=== PATIENT | female | born 1930 | race Caucasian/White ===

== ENCOUNTER 2017-02-24 13:52 | Inpatient (IN) | payer MEDICARE, BC ==
[2017-02-24 14:18] LABS: BASOPHILS % (AUTO) 1 % (0-3); EOSINOPHILS % (AUTO) 0 % (0-9); HEMATOCRIT 39 % (35-47); MEAN CORPUSCULAR HGB CONC 32.4 gm/dl (32.0-36.0); MONOCYTES % (AUTO) 9.7 % (0-12); NEUTROPHILS % (AUTO) 68.9 % (37-80)
[2017-02-24 14:24] LABS: MEAN CORPUSCULAR VOLUME 79 fL (81-99)
[2017-02-24 14:37] LABS: ALT 29 IU/L (14-63); CALCIUM 8.2 mg/dl (8.5-10.1); GLOM FILT RATE 54 mL/min (>60); POTASSIUM 3.1 mMol/L (3.5-5.1); SODIUM 141 mMol/L (136-145)
[2017-02-24 14:52] LABS: ABG PH 7.49 (7.35-7.45)
[2017-02-24] MEDS ORDERED: POTASSIUM CHLORIDE 2 MEQ/ML 40 MEQ, LIDOCAINE HCL 1% MDV 2 ML in SODIUM CHLORIDE 0.9% 5... IV ONE (15:37)
[2017-02-24 15:48] LABS: APPEARANCE,URINE Clear; BILIRUBIN,URINE NEGATIVE (NEGATIVE); COLOR,URINE Yellow; GLUCOSE, URINE (UA) NEGATIVE (NEGATIVE); KETONES,URINE NEGATIVE (NEGATIVE); LEUKOCYTE ESTERASE ,URINE TRACE (NEGATIVE); NITRATE,URINE NEGATIVE (NEGATIVE); OCCULT BLOOD,URINE TRACE INTACT (NEG-TRACE); UROBILINOGEN,URINE 0.2 (0.2-1.0 EU)
[2017-02-24 15:55] LABS: RBC,URINE 0-1 (0-3AV/HPF); WBC,URINE 0-1 (0-5AV/HPF)
[2017-02-24] MEDS ORDERED: WARFARIN SODIUM 2.5 MG TAB PO SCH (16:00)
[2017-02-24] MEDS ORDERED: POTASSIUM CHLORIDE 2 MEQ/ML SOL IV ONE (16:12)
[2017-02-24] MEDS ORDERED: LIDOCAINE HCL 1% MPF SOL ONE (16:12)
[2017-02-24] MEDS: FUROSEMIDE 40 MG SOL IV SCH ×2 (16:31→21:25)
[2017-02-24] MEDS: WARFARIN SODIUM 2.5 MG TAB PO SCH (18:06)
[2017-02-24] MEDS: SODIUM CHLORIDE 0.9% FLUSH 10 ML SOL IV PRN (21:25)
[2017-02-24] MEDS: ACETAMINOPHEN 325 MG PO PRN (21:50)
[2017-02-25 07:44] LABS: BASOPHILS % (AUTO) 1 % (0-3); EOSINOPHILS % (AUTO) 0 % (0-9); HEMATOCRIT 40 % (35-47); MEAN CORPUSCULAR HGB CONC 30.8 gm/dl (32.0-36.0); MONOCYTES % (AUTO) 11.4 % (0-12); NEUTROPHILS % (AUTO) 69.7 % (37-80)
[2017-02-25 07:50] LABS: CALCIUM 8.6 mg/dl (8.5-10.1); POTASSIUM 3.2 mMol/L (3.5-5.1)
[2017-02-25 08:01] LABS: MEAN CORPUSCULAR VOLUME 80 fL (81-99)
[2017-02-25 08:28] LABS: NORMAL RBCS PRESENT
[2017-02-25] MEDS ORDERED: Non-Formulary Medication MISC (Levothyroxine Sodium 112 Mcg 112 MCG) PO SCH (09:00)
[2017-02-25] MEDS ORDERED: OMEPRAZOLE 20 MG CAPSULE PO SCH (09:00)
[2017-02-25] MEDS ORDERED: FUROSEMIDE 20mg SOL ONE (10:03)
[2017-02-25] MEDS: DOCUSATE SODIUM 100 MG SGL PO SCH (10:08)
[2017-02-25] MEDS: FUROSEMIDE 40 MG SOL IV SCH ×3 (10:09→17:22)
[2017-02-25] MEDS: LEVOTHYROXINE SODIUM 112 MCG TAB PO SCH (10:18)
[2017-02-25] MEDS: PANTOPRAZOLE SODIUM 40 MG ECT PO SCH (10:18)
[2017-02-25] MEDS: ONDANSETRON 4 MG ODT BU PRN (12:56)
[2017-02-25] MEDS ORDERED: DILTIAZEM 5 MG/ML SOL IV ONE ×2 (14:06→14:34)
[2017-02-25] MEDS: SODIUM CHLORIDE 0.9% FLUSH 10 ML SOL IV PRN (14:14)
[2017-02-25] MEDS ORDERED: SODIUM CHLORIDE 0.9% 100 ML 100 ML IV ONE (14:35)
[2017-02-25] MEDS: DILTIAZEM 5 MG/ML 125 MG in SODIUM CHLORIDE 0.9% 100 ML 100 ML IV SCH (14:47)
[2017-02-25] MEDS ORDERED: POTASSIUM CHLORIDE 10 MEQ TER PO ONE (16:00)
[2017-02-25] MEDS: WARFARIN SODIUM 2.5 MG TAB PO SCH (17:23)
[2017-02-25] MEDS: POTASSIUM CHLORIDE 10 MEQ TER PO SCH (20:02)
[2017-02-26] MEDS ORDERED: DILTIAZEM 5 MG/ML SOL IV ONE (00:33)
[2017-02-26] MEDS ORDERED: SODIUM CHLORIDE 0.9% 100 ML 100 ML IV ONE (00:34)
[2017-02-26] MEDS: DILTIAZEM 5 MG/ML 125 MG in SODIUM CHLORIDE 0.9% 100 ML 100 ML IV SCH (00:45)
[2017-02-26] MEDS: LEVOTHYROXINE SODIUM 112 MCG TAB PO SCH (07:08)
[2017-02-26 07:21] LABS: CALCIUM 8.4 mg/dl (8.5-10.1); POTASSIUM 3.8 mMol/L (3.5-5.1)
[2017-02-26] MEDS: FUROSEMIDE 40 MG SOL IV SCH ×3 (08:11→17:21)
[2017-02-26] MEDS: SODIUM CHLORIDE 0.9% FLUSH 10 ML SOL IV PRN ×3 (08:12→17:24)
[2017-02-26] MEDS: DOCUSATE SODIUM 100 MG SGL PO SCH (08:31)
[2017-02-26] MEDS: PANTOPRAZOLE SODIUM 40 MG ECT PO SCH (08:31)
[2017-02-26] MEDS: POTASSIUM CHLORIDE 10 MEQ TER PO SCH ×2 (08:33→20:04)
[2017-02-26] MEDS: LISINOPRIL 5 MG TAB PO SCH (08:34)
[2017-02-26] MEDS: ONDANSETRON 4 MG ODT BU PRN (08:51)
[2017-02-26] MEDS ORDERED: METOPROLOL SUCCINATE 50 MG ER TAB PO SCH ×2 (09:00)
[2017-02-26] MEDS: ACETAMINOPHEN 325 MG PO PRN (09:18)
[2017-02-26] MEDS ORDERED: DILTIAZEM CD 300 MG PO SCH (11:00)
[2017-02-26] MEDS ORDERED: WARFARIN SODIUM 2.5 MG TAB PO SCH (15:15)
[2017-02-26] MEDS ORDERED: DILTIAZEM ER 120 MG C24 PO STA (17:17)
[2017-02-26] MEDS: WARFARIN SODIUM 2.5 MG TAB PO SCH (17:22)
[2017-02-26] MEDS: BECLOMETHASONE INH SCH (20:00)
[2017-02-26] MEDS ORDERED: AMIODARONE 50 MG/ML 450 MG in DEXTROSE 250 ML 250 ML IV ONE (20:51)
[2017-02-26] MEDS ORDERED: AMIODARONE 50 MG/ML SOL ONE (20:57)
[2017-02-26] MEDS ORDERED: DEXTROSE 250 ML 250 ML IV ONE (20:58)
[2017-02-27] MEDS ORDERED: AMIODARONE 50 MG/ML 600 MG in DEXTROSE 250 ML 250 ML IV ONE (03:15)
[2017-02-27] MEDS ORDERED: AMIODARONE 50 MG/ML SOL ONE (03:33)
[2017-02-27] MEDS ORDERED: DEXTROSE 250 ML 250 ML IV ONE (03:33)
[2017-02-27] MEDS: LEVOTHYROXINE SODIUM 112 MCG TAB PO SCH (06:45)
[2017-02-27] MEDS ORDERED: DILTIAZEM ER 120 MG C24 PO SCH (09:00)
[2017-02-27] MEDS: DOCUSATE SODIUM 100 MG SGL PO SCH (09:45)
[2017-02-27] MEDS: PANTOPRAZOLE SODIUM 40 MG ECT PO SCH (09:45)
[2017-02-27] MEDS: FUROSEMIDE 40 MG SOL IV SCH (09:46)
[2017-02-27] MEDS: POTASSIUM CHLORIDE 10 MEQ TER PO SCH ×2 (09:46→21:30)
[2017-02-27] MEDS: LISINOPRIL 5 MG TAB PO SCH (09:47)
[2017-02-27] MEDS: FLUTICASONE PROPIONATE 110 MCG INH SCH ×4 (10:12→21:31)
[2017-02-27] MEDS: FUROSEMIDE 40 MG TAB PO SCH ×3 (10:17→18:00)
[2017-02-27] MEDS: PREDNISONE 20 MG TAB PO SCH (10:17)
[2017-02-27] MEDS: BECLOMETHASONE INH SCH (10:18)
[2017-02-27] MEDS: METOPROLOL TARTRATE 25 MG TAB PO SCH ×3 (10:29→21:34)
[2017-02-27] MEDS: ONDANSETRON 4 MG ODT BU PRN (11:29)
[2017-02-27] MEDS ORDERED: AMIODARONE 200 MG TAB PO STA (16:25)
[2017-02-27] MEDS: SODIUM CHLORIDE 0.9% FLUSH 10 ML SOL IV PRN ×3 (16:49→21:55)
[2017-02-27] MEDS: WARFARIN SODIUM 2.5 MG TAB PO SCH (17:59)
[2017-02-28] MEDS: ACETAMINOPHEN 325 MG PO PRN ×2 (00:19→14:54)
[2017-02-28] MEDS: LEVOTHYROXINE SODIUM 112 MCG TAB PO SCH (06:57)
[2017-02-28] MEDS: DOCUSATE SODIUM 100 MG SGL PO SCH (08:43)
[2017-02-28] MEDS: POTASSIUM CHLORIDE 10 MEQ TER PO SCH ×2 (08:44→21:18)
[2017-02-28] MEDS: PANTOPRAZOLE SODIUM 40 MG ECT PO SCH (08:44)
[2017-02-28] MEDS: FLUTICASONE PROPIONATE 110 MCG INH SCH ×2 (08:45→21:18)
[2017-02-28] MEDS: FUROSEMIDE 40 MG TAB PO SCH ×3 (08:46→18:04)
[2017-02-28] MEDS: AMIODARONE 200 MG TAB PO SCH (08:47)
[2017-02-28] MEDS: METOPROLOL TARTRATE 25 MG TAB PO SCH ×2 (09:00→21:19)
[2017-02-28] MEDS: PREDNISONE 20 MG TAB PO SCH (09:01)
[2017-02-28] MEDS ORDERED: WARFARIN SODIUM 5 MG TAB PO SCH ×4 (15:09→18:00)
[2017-02-28] MEDS: SODIUM CHLORIDE 0.9% FLUSH 10 ML SOL IV PRN ×2 (18:55→21:33)
[2017-03-01] MEDS: ACETAMINOPHEN 325 MG PO PRN (00:59)
[2017-03-01] MEDS: SODIUM CHLORIDE 0.9% FLUSH 10 ML SOL IV SCH ×3 (03:13→18:54)
[2017-03-01] MEDS: LEVOTHYROXINE SODIUM 112 MCG TAB PO SCH (07:13)
[2017-03-01] MEDS: FUROSEMIDE 40 MG TAB PO SCH ×3 (08:31→18:46)
[2017-03-01] MEDS: DOCUSATE SODIUM 100 MG SGL PO SCH (08:34)
[2017-03-01] MEDS: POTASSIUM CHLORIDE 10 MEQ TER PO SCH ×2 (08:35→21:14)
[2017-03-01] MEDS: PANTOPRAZOLE SODIUM 40 MG ECT PO SCH (08:35)
[2017-03-01] MEDS: PREDNISONE 20 MG TAB PO SCH (08:35)
[2017-03-01] MEDS: METOPROLOL TARTRATE 25 MG TAB PO SCH ×2 (08:36→21:14)
[2017-03-01] MEDS: AMIODARONE 200 MG TAB PO SCH (08:36)
[2017-03-01] MEDS: IPRATROPIUM BROMIDE 1 VIAL SOL NEB SCH ×3 (09:35→21:20)
[2017-03-01] MEDS: FLUTICASONE PROPIONATE 110 MCG INH SCH ×2 (09:42→21:16)
[2017-03-02] MEDS: IPRATROPIUM BROMIDE 1 VIAL SOL NEB SCH ×4 (03:19→20:45)
[2017-03-02] MEDS: SODIUM CHLORIDE 0.9% FLUSH 10 ML SOL IV SCH ×3 (03:21→19:25)
[2017-03-02] MEDS: LEVOTHYROXINE SODIUM 112 MCG TAB PO SCH (06:42)
[2017-03-02] MEDS: METOPROLOL TARTRATE 25 MG TAB PO SCH ×2 (08:34→20:49)
[2017-03-02] MEDS: FUROSEMIDE 40 MG TAB PO SCH ×3 (08:34→19:25)
[2017-03-02] MEDS: PANTOPRAZOLE SODIUM 40 MG ECT PO SCH (08:34)
[2017-03-02] MEDS: POTASSIUM CHLORIDE 10 MEQ TER PO SCH ×2 (08:34→20:49)
[2017-03-02] MEDS: PREDNISONE 20 MG TAB PO SCH (08:35)
[2017-03-02] MEDS: DOCUSATE SODIUM 100 MG SGL PO SCH (08:35)
[2017-03-02] MEDS: AMIODARONE 200 MG TAB PO SCH (08:37)
[2017-03-02] MEDS: FLUTICASONE PROPIONATE 110 MCG INH SCH ×2 (08:39→20:49)
[2017-03-03] MEDS: IPRATROPIUM BROMIDE 1 VIAL SOL NEB SCH ×4 (01:56→21:34)
[2017-03-03] MEDS: SODIUM CHLORIDE 0.9% FLUSH 10 ML SOL IV SCH ×4 (01:57→18:07)
[2017-03-03] MEDS: LEVOTHYROXINE SODIUM 112 MCG TAB PO SCH (06:20)
[2017-03-03 08:09] LABS: BASOPHILS % (AUTO) 1 % (0-3); EOSINOPHILS % (AUTO) 0 % (0-9); HEMATOCRIT 47 % (35-47); MEAN CORPUSCULAR HGB CONC 30.6 gm/dl (32.0-36.0); NEUTROPHILS % (AUTO) 45.4 % (37-80)
[2017-03-03] MEDS: POTASSIUM CHLORIDE 10 MEQ TER PO SCH ×2 (08:15→21:35)
[2017-03-03] MEDS: FUROSEMIDE 40 MG TAB PO SCH ×3 (08:15→18:07)
[2017-03-03] MEDS: FLUTICASONE PROPIONATE 110 MCG INH SCH ×2 (08:15→21:38)
[2017-03-03] MEDS: METOPROLOL TARTRATE 25 MG TAB PO SCH ×2 (08:15→21:36)
[2017-03-03] MEDS: PREDNISONE 20 MG TAB PO SCH (08:15)
[2017-03-03] MEDS: DOCUSATE SODIUM 100 MG SGL PO SCH (08:15)
[2017-03-03] MEDS: AMIODARONE 200 MG TAB PO SCH (08:16)
[2017-03-03] MEDS: PANTOPRAZOLE SODIUM 40 MG ECT PO SCH (08:16)
[2017-03-03 08:21] LABS: POTASSIUM 3.8 mMol/L (3.5-5.1)
[2017-03-03 08:36] LABS: MEAN CORPUSCULAR VOLUME 79 fL (81-99)
[2017-03-03 09:06] LABS: ANISOCYTOSIS SLIGHT AMT
[2017-03-03] MEDS: ACETAMINOPHEN 325 MG PO PRN (12:15)
[2017-03-03] MEDS ORDERED: WARFARIN SODIUM 2 MG TAB PO ONE (18:00)
[2017-03-04] MEDS: IPRATROPIUM BROMIDE 1 VIAL SOL NEB SCH ×3 (03:18→14:43)
[2017-03-04] MEDS: SODIUM CHLORIDE 0.9% FLUSH 10 ML SOL IV SCH ×2 (03:20→12:27)
[2017-03-04 03:29] VITALS: RESP 20
[2017-03-04] MEDS: LEVOTHYROXINE SODIUM 112 MCG TAB PO SCH (07:02)
[2017-03-04] MEDS: DOCUSATE SODIUM 100 MG SGL PO SCH (08:56)
[2017-03-04] MEDS: POTASSIUM CHLORIDE 10 MEQ TER PO SCH (08:57)
[2017-03-04] MEDS: PANTOPRAZOLE SODIUM 40 MG ECT PO SCH (08:57)
[2017-03-04] MEDS: FUROSEMIDE 40 MG TAB PO SCH ×3 (08:59→17:35)
[2017-03-04] MEDS: FLUTICASONE PROPIONATE 110 MCG INH SCH (08:59)
[2017-03-04] MEDS: AMIODARONE 200 MG TAB PO SCH (08:59)
[2017-03-04] MEDS: METOPROLOL TARTRATE 25 MG TAB PO SCH (09:01)
[2017-03-04] MEDS: PREDNISONE 20 MG TAB PO SCH (09:01)
[2017-03-04 15:30] VITALS: BP 129/76; PULSE 100; TEMP 97.6; O2SAT 93
[2017-03-04] MEDS ORDERED: WARFARIN SODIUM 2.5 MG TAB PO SCH (18:00)
== END 2017-03-04 18:45 | disposition home health service (06) | DRG 205 ==
LOC: ED 13:52 → UNDOADMIN 15:20 → ACUTE CARE 15:20
PROVIDERS: ADMIT Family Medicine; ATTEND Family Medicine
PROC: F01ZDFZ Gait and/or Balance Assessment using Assistive, Adaptive, Supportive or Protective Equipment (ICD-10-PCS; principal; 2017-02-28)
PROC: F01ZBZZ Bed Mobility Assessment (ICD-10-PCS; 2017-02-28)
PROC: F01ZCZZ Transfer Assessment (ICD-10-PCS; 2017-02-28)
PROC: F02Z1ZZ Dressing Assessment (ICD-10-PCS; 2017-02-28)
PROC: F02Z0ZZ Bathing/Showering Assessment (ICD-10-PCS; 2017-02-28)
PROC: F02Z3ZZ Grooming/Personal Hygiene Assessment (ICD-10-PCS; 2017-02-28)
DX: R09.02 Hypoxemia (principal); I50.33 Acute on chronic diastolic (congestive) heart failure; I27.2 Other secondary pulmonary hypertension; I48.91 Unspecified atrial fibrillation; I48.0 Paroxysmal atrial fibrillation; J45.901 Unspecified asthma with (acute) exacerbation; I07.1 Rheumatic tricuspid insufficiency; E87.6 Hypokalemia; Z79.01 Long term (current) use of anticoagulants; I11.0 Hypertensive heart disease with heart failure; E03.9 Hypothyroidism, unspecified; I35.0 Nonrheumatic aortic (valve) stenosis
CPT/HCPCS: 36415; 36600; 70450; 71010; 71020; 80048; 80053; 81001; 82803; 83880; 84484; 85025; 85610; 87040; 93005; 93012; 94150; 94640; 94664; 94762; 99070; 99223; 99284; J0282; J1940; J3480; A6232; J2001

== ENCOUNTER 2018-01-31 12:06 | Inpatient (IN) | payer MEDICARE, BC ==
[2018-01-31] MEDS ORDERED: ALBUTEROL NEB SOL 2.5MG/3ML 1 VIAL SOL NEB PRN (13:29)
[2018-01-31] MEDS: ALBUTEROL/IPRATROPIUM 1 VIAL SOL INH SCH ×2 (14:01→18:44)
[2018-01-31] MEDS: FUROSEMIDE 20 MG TAB PO SCH (14:08)
[2018-01-31] MEDS: SOLUMEDROL 125 MG/2 ML 125 MG/2 ML PDS IV SCH ×2 (14:08→18:44)
[2018-01-31] MEDS: LEVOFLOXACIN 500 MG TAB PO SCH (14:08)
[2018-01-31] MEDS: MIRTAZAPINE 15 MG TAB PO SCH (20:24)
[2018-01-31] MEDS: PRAVASTATIN SODIUM 20 MG TAB PO SCH (20:25)
[2018-01-31] MEDS: W ADAP INH SCH (21:01)
[2018-01-31] MEDS: BECLOMETHASONE DIP INH SCH (21:01)
[2018-02-01] MEDS: ALBUTEROL/IPRATROPIUM 1 VIAL SOL INH SCH ×4 (01:55→18:42)
[2018-02-01] MEDS: SOLUMEDROL 125 MG/2 ML 125 MG/2 ML PDS IV SCH ×4 (01:55→18:39)
[2018-02-01 07:05] LABS: BASOPHILS % (AUTO) 0 % (0-3); EOSINOPHILS % (AUTO) 0 % (0-9); HEMATOCRIT 38 % (35-47); MEAN CORPUSCULAR HGB CONC 32.6 gm/dl (32.0-36.0); MONOCYTES % (AUTO) 4.7 % (0-12); NEUTROPHILS % (AUTO) 80.7 % (37-80)
[2018-02-01 07:06] LABS: CALCIUM 8.4 mg/dl (8.5-10.1); POTASSIUM 4.6 mMol/L (3.5-5.1)
[2018-02-01] MEDS: LEVOTHYROXINE SODIUM 112 MCG TAB PO SCH ×2 (07:08→09:14)
[2018-02-01 07:09] LABS: MEAN CORPUSCULAR VOLUME 78 fL (81-99)
[2018-02-01] MEDS: POTASSIUM CHLORIDE 10 MEQ TER PO SCH (09:13)
[2018-02-01] MEDS: LEVOFLOXACIN 500 MG TAB PO SCH (09:13)
[2018-02-01] MEDS: FUROSEMIDE 20 MG TAB PO SCH ×2 (09:13→12:47)
[2018-02-01] MEDS: PANTOPRAZOLE SODIUM 40 MG ECT PO SCH (09:13)
[2018-02-01] MEDS: W ADAP INH SCH ×2 (09:14→20:13)
[2018-02-01] MEDS: BECLOMETHASONE DIP INH SCH ×2 (09:14→20:13)
[2018-02-01] MEDS: SODIUM CHLORIDE 0.9% FLUSH 10 ML SOL IV SCH ×2 (12:49→20:16)
[2018-02-01] MEDS: MIRTAZAPINE 15 MG TAB PO SCH (20:15)
[2018-02-01] MEDS: PRAVASTATIN SODIUM 20 MG TAB PO SCH (20:24)
[2018-02-02] MEDS: SOLUMEDROL 125 MG/2 ML 125 MG/2 ML PDS IV SCH ×4 (01:18→20:11)
[2018-02-02] MEDS: ALBUTEROL/IPRATROPIUM 1 VIAL SOL INH SCH ×6 (01:19→20:24)
[2018-02-02] MEDS: SODIUM CHLORIDE 0.9% FLUSH 10 ML SOL IV SCH ×5 (01:19→20:11)
[2018-02-02] MEDS: LEVOTHYROXINE SODIUM 112 MCG TAB PO SCH (06:03)
[2018-02-02] MEDS: POTASSIUM CHLORIDE 10 MEQ TER PO SCH (09:40)
[2018-02-02] MEDS: PANTOPRAZOLE SODIUM 40 MG ECT PO SCH (09:40)
[2018-02-02] MEDS: LEVOFLOXACIN 500 MG TAB PO SCH (09:40)
[2018-02-02] MEDS: W ADAP INH SCH ×2 (09:41→20:11)
[2018-02-02] MEDS: BECLOMETHASONE DIP INH SCH ×2 (09:41→20:11)
[2018-02-02] MEDS: FUROSEMIDE 40 MG TAB PO SCH ×2 (10:05→12:24)
[2018-02-02] MEDS ORDERED: FLUCONAZOLE 40 MG/ML SUSP PO ONE (10:30)
[2018-02-02] MEDS: FUROSEMIDE 20 MG TAB PO SCH ×2 (11:22→12:24)
[2018-02-02] MEDS: GUAIFENESIN 200 MG/10 ML SOL PO SCH ×2 (11:23→17:31)
[2018-02-02] MEDS ORDERED: FLUCONAZOLE 150 MG TAB PO ONE (11:30)
[2018-02-02] MEDS ORDERED: WARFARIN SODIUM 2.5 MG TAB PO SCH (18:00)
[2018-02-02] MEDS: MIRTAZAPINE 15 MG TAB PO SCH (20:11)
[2018-02-02] MEDS: PRAVASTATIN SODIUM 20 MG TAB PO SCH (20:11)
[2018-02-03] MEDS: ALBUTEROL/IPRATROPIUM 1 VIAL SOL INH SCH ×6 (02:40→20:27)
[2018-02-03] MEDS: SOLUMEDROL 125 MG/2 ML 125 MG/2 ML PDS IV SCH ×2 (02:40→10:28)
[2018-02-03] MEDS: LEVOTHYROXINE SODIUM 112 MCG TAB PO SCH (06:11)
[2018-02-03] MEDS: SODIUM CHLORIDE 0.9% FLUSH 10 ML SOL IV SCH ×3 (06:18→20:25)
[2018-02-03 06:56] LABS: CALCIUM 8.1 mg/dl (8.5-10.1); POTASSIUM 4.3 mMol/L (3.5-5.1)
[2018-02-03 06:59] LABS: BASOPHILS % (AUTO) 1 % (0-3); EOSINOPHILS % (AUTO) 0 % (0-9); HEMATOCRIT 39 % (35-47); MEAN CORPUSCULAR HGB CONC 33.4 gm/dl (32.0-36.0); MONOCYTES % (AUTO) 4.3 % (0-12); NEUTROPHILS % (AUTO) 78.6 % (37-80)
[2018-02-03 07:01] LABS: MEAN CORPUSCULAR VOLUME 77 fL (81-99)
[2018-02-03] MEDS: W ADAP INH SCH ×2 (09:23→20:23)
[2018-02-03] MEDS: BECLOMETHASONE DIP INH SCH ×2 (09:23→20:23)
[2018-02-03] MEDS: LEVOFLOXACIN 500 MG TAB PO SCH (09:24)
[2018-02-03] MEDS: POTASSIUM CHLORIDE 10 MEQ TER PO SCH (09:24)
[2018-02-03] MEDS: FUROSEMIDE 40 MG TAB PO SCH ×2 (09:25→12:03)
[2018-02-03] MEDS: PANTOPRAZOLE SODIUM 40 MG ECT PO SCH (09:25)
[2018-02-03] MEDS: PREDNISONE 20 MG TAB PO SCH (10:51)
[2018-02-03] MEDS: MIRTAZAPINE 15 MG TAB PO SCH (20:25)
[2018-02-03] MEDS: PRAVASTATIN SODIUM 20 MG TAB PO SCH (20:26)
[2018-02-04] MEDS: ALBUTEROL/IPRATROPIUM 1 VIAL SOL INH SCH ×3 (01:44→09:09)
[2018-02-04] MEDS: SODIUM CHLORIDE 0.9% FLUSH 10 ML SOL IV SCH (05:45)
[2018-02-04] MEDS: LEVOTHYROXINE SODIUM 112 MCG TAB PO SCH (06:13)
[2018-02-04 08:37] VITALS: BP 128/78; TEMP 97.8
[2018-02-04] MEDS: FUROSEMIDE 40 MG TAB PO SCH ×2 (09:07→12:16)
[2018-02-04] MEDS: POTASSIUM CHLORIDE 10 MEQ TER PO SCH (09:07)
[2018-02-04] MEDS: LEVOFLOXACIN 500 MG TAB PO SCH (09:07)
[2018-02-04] MEDS: BECLOMETHASONE DIP INH SCH (09:08)
[2018-02-04] MEDS: W ADAP INH SCH (09:08)
[2018-02-04] MEDS: PREDNISONE 20 MG TAB PO SCH (09:08)
[2018-02-04] MEDS: PANTOPRAZOLE SODIUM 40 MG ECT PO SCH (09:08)
[2018-02-04 09:12] VITALS: RESP 24
[2018-02-04 09:52] VITALS: PULSE 71; O2SAT 94
== END 2018-02-04 12:35 | DRG 202 ==
LOC: ACUTE CARE 12:09
PROVIDERS: ADMIT Family Medicine; ATTEND Family Medicine
DX: J45.41 Moderate persistent asthma with (acute) exacerbation (principal); I50.33 Acute on chronic diastolic (congestive) heart failure; J18.9 Pneumonia, unspecified organism; I48.2 Chronic atrial fibrillation; B37.0 Candidal stomatitis; I11.0 Hypertensive heart disease with heart failure; I35.0 Nonrheumatic aortic (valve) stenosis; Z79.01 Long term (current) use of anticoagulants
CPT/HCPCS: 36415; 71046; 80048; 83880; 85025; 85610; 94640; 94664; 94760; J2930; J7603; A9270; A9270-GY